=== PATIENT | male | born 1975 | race Caucasian/White ===

== ENCOUNTER 2016-09-04 23:28 | Emergency (ER) | payer OTHER ==
[~2016-09-04] VITALS: Ht 175.3 cm; Wt 105.0 kg
[~2016-09-04 23:28] MED LIST: FURO40TA4 PO; PROP10TA6 PO; SPIR25TA PO; TRAM50TA2 PO
[2016-09-04 23:36] VITALS: Ht 175.3 cm; Wt 105.0 kg
[2016-09-05] MEDS ORDERED: OXYCODONE/ACETAMINOPHEN (5/325) TAB PO ONE (01:00)
--- NOTE | 2016-09-05 01:08 | ERD ---
ER Documentation Chief Complaint Date/Time DATE: 09/05/16 TIME: 01:05 Chief Complaint post op abd surgery 08/26, now c/o abd distention and testicular swelling HPI 40-year-old man complains of scrotal edema 3-4 days and is worried because he is status post left inguinal herniorrhaphy about 1 week ago. He has had no dysuria hematuria, no vomiting or diarrhea, no blood per rectum or melena, no complaints of chest pain or shortness of breath. He states since surgery his abdominal pain has improved and he has not lifted any heavy objects. ROS All systems reviewed and are negative except as per history of present illness. Medications Home Meds Active Scripts Tramadol HCl (Tramadol HCl) 50 Mg Tablet, 25 MG PO Q8 Y for PAIN, #15 TAB Prov:THOMAS MAYERS DO 12/05/15 Furosemide* (Furosemide*) 40 Mg Tablet, 40 MG PO DAILY@06 for 20 Days, TAB Prov:STEFANIE PEREZ 11/04/15 Reported Medications Elbasvir/Grazoprevir (Zepatier 50-100 mg Tablet) 1 Each Tablet, 1 EACH PO, TAB 09/05/16 Docusate Sodium* (Docusate Sodium*) 100 Mg Capsule, 100 MG PO DAILY, #30 CAP 09/05/16 Propranolol Hcl* (Propranolol Hcl*) 10 Mg Tablet, 10 MG PO BID, TAB 09/05/16 Spironolactone* (Aldactone*) 25 Mg Tablet, 25 MG PO BID, #60 TAB 12/05/15 Discontinued Scripts Propranolol Hcl* (Propranolol Hcl*) 10 Mg Tablet, 10 MG PO TID for 30 Days, TAB Prov:STEFANIE PEREZ 11/04/15 Allergies Allergies: Coded Allergies: No Known Allergy (Unverified , 09/04/16) PMhx/Soc History of alcohol abuse and liver cirrhosis with previous ascites requiring paracentesis, umbilical hernia, hypertension, hepatitis C, recent herniorrhaphy History of Surgery: No Anesthesia Reaction: No Hx Neurological Disorder: No Hx Respiratory Disorders: No Hx Cardiac Disorders: No Hx Psychiatric Problems: No Hx Miscellaneous Medical Probl: Yes (HEP C, PRE-HTN ,ASCITIES ) Hx Alcohol Use: Yes (quit many years ago) Hx Substance Use: No Hx Tobacco Use: No (QUIT 3 YEARS AGO ) Smoking Status: Former smoker FmHx Family History: No diabetes Physical Exam Vitals Vital Signs Date Time Temp Pulse Resp B/P Pulse Ox O2 Delivery O2 Flow Rate FiO2 09/05/16 02:09 98.5 70 18 110/69 95 Room Air 09/04/16 23:36 98.5 75 20 107/65 97 Physical Exam GENERAL: Well-developed, well-nourished, well-hydrated, in no apparent distress , looks nontoxic in appearance HEENT: Moist mucous membranes, pink conjunctiva, no cervical spine tenderness or step-off deformities, no goiter, no jaundice or icterus, extraocular movements intact without pain. No submandibular induration, and no pharyngeal erythema NEURO: Alert and oriented 3, cranial nerves II through XII intact bilaterally, pupils equal round reactive to light, no focal deficits or facial asymmetry, sensation intact distally Strength 5/5 in upper and lower extremities bilaterally CARDIAC: Regular rate and rhythm, no murmurs rubs or gallops LUNGS: Clear bilaterally no wheezing crackles or stridor ABDOMEN: Soft nontender, no guarding, no rigidity, no rebound, no psoas sign no obturator sign. Normoactive bowel sounds SKIN: Warm and dry to touch, no abrasions, contusions, or hematomas, no lacerations, no ecchymosis, no target lesions, and without ulcers EXTREMITIES: No clubbing cyanosis, 2+ pitting edema in the lower extremities bilaterally, calves are bilaterally symmetrical, no Homans sign, no popliteal cord sign. Distal pulses equal and bilateral PSYCH: Normal affect without agitation or irritability Results 24 hrs Current Medications Medications (Trade) Dose Ordered Sig/Manju Route PRN Reason Start Time Stop Time Status Last Admin Dose Admin Oxycodone/ Acetaminophen (Percocet (5/ 325)) 1 tab ONCE ONCE PO 09/05/16 01:00 09/05/16 01:01 DC 09/05/16 00:50 Procedures/MDM I placed patient on accounts payable representative rhythm strip revealed a sinus rhythm at about 80 bpm with upright P and T waves. Patient was afebrile. I administered Percocet 1 tablet p.o. with good pain control. Scrotal ultrasound was performed, no testicular torsion was noted, no hernia sac was noted. Please refer to radiologist dictation for full report. Differential diagnoses considered, included but not limited to incarcerated hernia, testicular torsion, urethritis, bowel obstruction, meningitis, encephalitis, pneumonia, appendicitis, cholecystitis, bowel obstruction, pyelonephritis, nephrolithiasis, cystitis, as well as metabolic, hematologic, and electrolyte abnormalities. As well as abscess, cellulitis, fractures, and dislocations. Patient feels much better at this time, and vital signs are normal, symptoms have improved. I did give strict instructions to return to the ED if symptoms continue or worsen, patient will otherwise follow-up with primary care physician. Patient understood instructions and agreed to plan. Disclaimer: Inadvertent spelling or grammatical errors are likely due to EHR/ dictation software use and do not reflect on the overall quality of patient care. Departure Diagnosis: Primary Impression: Scrotal edema Additional Impression: Cirrhosis Hepatic cirrhosis type: alcoholic cirrhosis Ascites presence: with ascites Qualified Code: K70.31 - Alcoholic cirrhosis of liver with ascites Condition: DEXTER Isaacs MD September 05, 2016 01:08
[2016-09-05] MEDS ORDERED: PROP10TA6 PO (02:08)
[2016-09-05 02:09] VITALS: BP 110/69; PULSE 70; RESP 18; TEMP 98.5
[2016-09-05] MEDS ORDERED: ELBA1TAB PO (02:09)
[2016-09-05] MEDS ORDERED: DOCU-159 PO (02:09)
--- NOTE | 2016-09-05 02:46 | RADRPT ---
PROCEDURE: Testicle ultrasound with power Doppler. CLINICAL INDICATION: Scrotal pain. TECHNIQUE: Multiple sonographic images of the scrotal region were obtained utilizing a linear arra y transducer with grayscale and color-flow and a Doppler imaging. The images were reviewed on a high -resolution PACS workstation. COMPARISON: None. FINDINGS: Bilateral testicles are normal in size, contour, echogenicity and echotexture. The right testicle m easures 4.5 x 2.5 x 2.7 cm and the left testicle measures 4.5 x 2.7 x 3.1 cm. Testicle arterial and venous flow are present but decreased. There is no evidence of testicular mass or torsion. There is no evidence of orchitis. Bilateral epididymi are normal in size, contour, position and echogenicity. The right epididymis me asures 14.4 x 7.4 mm the left epididymis measures 17.5 x 14.7 mm. There is no evidence of epididymit is. There is no significant hydrocele or varicocele. There is left scrotal wall thickening and virgilio ma. IMPRESSION: Left scrotal wall thickening and edema consistent with recent surgery. Decreased color flow to bilateral testicles without definite torsion. Clinical correlation and follo w-up is recommended. .Nii Newman MD, Date Time Electronically viewed and signed by .Nii Newman MD, MD on 09/05/2016 02:45 .T/
== END 2016-09-05 02:11 | disposition home or self-care (01) ==
LOC: E/R 23:28
DX: N50.89 Other specified disorders of the male genital organs (principal); K70.31 Alcoholic cirrhosis of liver with ascites; Z87.891 Personal history of nicotine dependence
CPT/HCPCS: 76870; Z7502; Z7610

== ENCOUNTER 2017-12-17 07:31 | Emergency (ER) | END 2017-12-17 10:16 | disposition home or self-care (01) ==